=== PATIENT | female | born 1985 | race Caucasian/White ===

== ENCOUNTER → 2022-08-01 13:34 | Outpatient (BNVA) | payer BC, SELFPAY | PROVIDERS: PCP Internal Medicine Hematology & Oncology; Visit Provider Physician Assistant | DX: E66.01 Morbid (severe) obesity due to excess calories (principal) ==

== ENCOUNTER → 2022-08-09 10:00 | Outpatient (BNVA) | payer BC, SELFPAY | PROVIDERS: PCP Internal Medicine Hematology & Oncology; Visit Provider Physician Assistant | DX: E66.01 Morbid (severe) obesity due to excess calories (principal); Z01.818 Encounter for other preprocedural examination; G47.33 Obstructive sleep apnea (adult) (pediatric); E78.5 Hyperlipidemia, unspecified; J45.909 Unspecified asthma, uncomplicated ==

== ENCOUNTER 2022-08-11 07:27 | Outpatient (REF) | payer BC, SELFPAY ==
--- NOTE | ~2022-08-11 | XR_ITS ---
EXAMINATION: XR CHEST 2 VIEWS CLINICAL INFORMATION: Morbid obesity. COMPARISON: None. TECHNIQUE: Frontal and lateral views of the chest were obtained. FINDINGS: The heart, great vessels, pulmonary vasculature and mediastinum are normal. The lungs show no focal infiltrate, effusion or pneumothorax. There is no acute osseous abnormality. XR/XR chest 2V IMPRESSION: No active cardiopulmonary disease.
[2022-08-11 07:45] LABS: MANUAL DIFF FLAG NO
[2022-08-11 08:05] LABS: Basophils Percent Auto 0.6 % (0-2); Eosinophils Absolute Auto 0.2 X10*3/uL (0.0-0.4); Hematocrit 39.9 % (37.0-47.0); Hemoglobin 13.2 g/dl (12.0-16.0); Imm Gran Abs Auto 0.03 X10*3/uL (0.00-0.03); Imm Gran Pct Auto 0.4 % (0.0-0.4); Mean Corpuscular HGB Conc 33.1 g/dl (31.0-35.0); Mean Corpuscular Hemoglobin 29.1 pg (27.0-33.0); Mean Corpuscular Volume 87.9 fL (80.0-98.0); Mean Platelet Volume 11.9 fL (9.4-12.3); Monocytes Absolute Auto 0.5 X10*3/uL (0.1-1.2); Monocytes Percent Auto 6.4 % (2-11); Neutrophils Absolute Auto 4.3 x10*3/uL (2.0-8.3); Neutrophils Percent Auto 60.6 % (45-73); Platelet Count 298 X10*3/uL (160-400); Red Blood Count 4.54 X10*6/uL (4.20-5.50); Red Cell Distribution Width 12.9 % (11.0-16.0)
[2022-08-11 08:51] LABS: Estimated Average Glucose 111 mg/dL; Hemoglobin A1c % 5.5 %
[2022-08-11 09:04] LABS: Alanine Aminotransferase 15 U/L (0-31); Albumin Level 4.3 g/dL (3.5-5.0); Alkaline Phosphatase 64 U/L (39-117); Anion Gap 13 (12-20); Aspartate Amino Transferase 17 U/L (5-31); Bilirubin Total 0.5 mg/dL (0.0-1.0); Blood Urea Nitrogen 17 mg/dL (9-16); C Reactive Protein 1.97 mg/dL (< or = 0.50); Calcium 9.4 mg/dL (8.4-10.2); Carbon Dioxide 24 mmol/L (22-29); Chloride 106 mmol/L (96-108); Cholesterol 195 mg/dL; Estimated Glomerular Filt Rate > 60; Glucose Random 90 mg/dL (60-115); HDL Cholesterol 53 mg/dL; Iron 67 mcg/dL (30-160); LDL Cholesterol Calculated 128 mg/dl; Percent Iron Saturation 27 % (15-50); Potassium 4.2 mmol/L (3.3-5.1); Sodium 139 mmol/L (135-145); Total Iron Binding Capacity 249 mcg/dL (228-428); Total Protein 7.3 g/dL (6.5-8.0); Triglycerides 71 mg/dL; Unsaturated Iron Binding 182 ug/dL
[2022-08-11 09:21] LABS: Ferritin 69 ng/mL (10-122); Insulin 8 uU/mL (2-29); TSH reflex Free T4 3.24 uIU/mL (0.32-4.0); Vitamin D 25-OH Total 27.1 ng/mL (>30)
[2022-08-11 09:36] LABS: Folate 15.9 ng/mL (> or = 4.0); Vitamin B12 668 pg/mL (200-900)
[2022-08-14 16:34] LABS: Zinc 81 mcg/dL (60-130)
[2022-08-14 17:59] LABS: Calcium (PTHI) 9.4 mg/dL (8.6-10.2); PTHI 58 pg/mL (16-77)
[2022-08-16 13:44] LABS: Vitamin A 37 mcg/dL (38-98)
[2022-08-16 16:04] LABS: Vitamin B1 10 nmol/L (8-30)
== END 2022-08-11 07:28 | disposition home or self-care (01) ==
LOC: HO.XRAY 07:27
PROVIDERS: PCP Internal Medicine; Visit Provider Physician Assistant
DX: Z01.818 Encounter for other preprocedural examination (principal); E66.01 Morbid (severe) obesity due to excess calories; E78.5 Hyperlipidemia, unspecified; G47.33 Obstructive sleep apnea (adult) (pediatric); J45.909 Unspecified asthma, uncomplicated
CPT/HCPCS: 36415; 71046; 80053; 80061; 82306; 82607; 82728; 82746; 83036; 83525; 83540; 83970; 84425; 84443; 84590; 84630; 85025; 86140

== ENCOUNTER → 2022-08-13 08:21 | Outpatient (REF) | payer BC, SELFPAY ==
--- NOTE | 2022-08-13 08:58 | ECG_ITS ---
Test Reason : E66.01 Blood Pressure : / mmHG Vent. Rate : 060 BPM Atrial Rate : 060 BPM P-R Int : 140 ms QRS Dur : 082 ms QT Int : 402 ms P-R-T Axes : 041 040 034 degrees QTc Int : 402 ms Normal sinus rhythm Normal ECG No previous ECGs available Referred By: Carmina Salazar Electronically Signed By:Talha Mosqueda
[2022-08-15 14:42] LABS: H Pylori Breath Test Negative (Negative)
== END ==
LOC: HO.CARD 08:21
PROVIDERS: PCP Internal Medicine Hematology & Oncology; Visit Provider Physician Assistant
DX: Z01.818 Encounter for other preprocedural examination (principal); E66.01 Morbid (severe) obesity due to excess calories; E78.5 Hyperlipidemia, unspecified; J45.909 Unspecified asthma, uncomplicated; G47.33 Obstructive sleep apnea (adult) (pediatric)
CPT/HCPCS: 36415; 83013; 93005

== ENCOUNTER → 2022-08-30 08:51 | Outpatient (BNVA) | payer BC, SELFPAY | PROVIDERS: PCP Internal Medicine Hematology & Oncology; Visit Provider Physician Assistant | DX: Z13.89 Encounter for screening for other disorder (principal) ==

== ENCOUNTER → 2022-09-04 12:30 | Outpatient (BNVA) | payer BC, SELFPAY | PROVIDERS: PCP Internal Medicine Hematology & Oncology; Visit Provider Counselor Mental Health | DX: F33.1 Major depressive disorder, recurrent, moderate (principal); E66.01 Morbid (severe) obesity due to excess calories; G47.33 Obstructive sleep apnea (adult) (pediatric) | CPT/HCPCS: 90791 ==

== ENCOUNTER → 2022-09-05 09:26 | Outpatient (BNVA) | payer BC, SELFPAY | PROVIDERS: PCP Internal Medicine Hematology & Oncology; Visit Provider Dietitian, Registered | DX: E66.01 Morbid (severe) obesity due to excess calories (principal) | CPT/HCPCS: 97802 ==

== ENCOUNTER → 2022-09-18 16:10 | Outpatient (BNVA) | payer BC, SELFPAY | PROVIDERS: PCP Internal Medicine Hematology & Oncology; Visit Provider Physician Assistant | DX: Z13.89 Encounter for screening for other disorder (principal) ==

== ENCOUNTER → 2022-09-27 11:40 | Outpatient (BNVA) | payer BC, SELFPAY | PROVIDERS: PCP Internal Medicine; Visit Provider Dietitian, Registered | DX: E66.9 Obesity, unspecified (principal); Z68.42 Body mass index [BMI] 45.0-49.9, adult | CPT/HCPCS: 97803 ==

== ENCOUNTER → 2022-10-12 08:21 | Outpatient (BNVA) | payer BC, SELFPAY | PROVIDERS: PCP Internal Medicine; Referring Provider Internal Medicine; Visit Provider Physician Assistant | DX: Z13.89 Encounter for screening for other disorder (principal) ==

== ENCOUNTER → 2022-10-22 09:43 | Outpatient (BNVA) | payer BC, SELFPAY | PROVIDERS: PCP Internal Medicine; Visit Provider Surgery | DX: Z13.89 Encounter for screening for other disorder (principal) ==

== ENCOUNTER → 2022-11-05 10:26 | Outpatient (BNVA) | payer BC, SELFPAY | PROVIDERS: PCP Internal Medicine; Visit Provider Physician Assistant | DX: Z13.89 Encounter for screening for other disorder (principal) ==

== ENCOUNTER 2022-11-08 09:22 | Outpatient (REF) | payer BC, SELFPAY ==
--- NOTE | ~2022-11-08 | US_ITS ---
EXAMINATION: US COMPLETE ABDOMEN WITH LIVER ELASTOGRAPHY CLINICAL INFORMATION: Obesity COMPARISON: None available. TECHNIQUE: Real-time imaging of the abdominal viscera. Noninvasive ultrasound liver fibrosis assessment is performed using Aydin ElastPQ point quantification shear wave elastography (2D-SWE) with a C5-2 MHz transducer. Multiple elastography samples are obtained. FINDINGS: PANCREAS: Normal. ABDOMINAL AORTA: The proximal, middle, and distal aortic segments are normal in caliber. INFERIOR VENA CAVA: Visualized portions are normal. LIVER: Normal. The liver demonstrates normal size, contour and echogenicity. No focal lesion or intrahepatic biliary duct dilatation. The right lobe measures 14 cm in length. The left lobe measures 10 cm in length. Portal flow is normal/hepatopedal Shear wave liver elastography median stiffness is 1.6 m/s (reference: normal median stiffness is 1.3 m/s or less). IQR/median stiffness to assess sampling precision is 0.14 (reference: good quality data set is IQR/median stiffness of 0.15 or less). GALLBLADDER: Normal. The gallbladder is physiologically distended without evidence of stones, sludge, polyps, wall thickening or pericholecystic fluid. COMMON BILE DUCT: Normal in caliber measuring 0.3 cm in diameter. RIGHT KIDNEY: Normal. No hydronephrosis. No renal calculi or focal parenchymal lesions. The kidney measures 11.4 cm in maximum dimension. LEFT KIDNEY: Normal. No hydronephrosis. No renal calculi or focal parenchymal lesions. The kidney measures 10 point cm in maximum dimension. SPLEEN: Normal. The spleen measures 12 cm in maximum dimension. FREE FLUID: None. US/US abdomen comp w elastography IMPRESSION: 1. Impression: Unremarkable exam 2. Liver elastography: Adequate liver sampling. In the absence of other known clinical signs, rules out compensated advanced chronic liver disease. REFERENCE: Society of Radiologists in Ultrasound Liver Stiffness Thresholds (2020): LIVER STIFFNESS THRESHOLDS: *Liver Stiffness equal or less than 1.3 m/s: High probability of being normal. *Liver Stiffness less than 1.7 m/s: In the absence of other known clinical signs, rules out compensated advanced chronic liver disease. *Liver Stiffness 1.7-2.1 m/s: Suggestive of compensated advanced chronic liver disease but need further test for confirmation. *Liver Stiffness over 2.1 m/s: Rules in compensated advanced chronic liver disease. *Liver Stiffness over 2.4 m/s: Suggestive of clinically significant portal hypertension. QUALITY OF DATA SET: *IQR/Median value equal or less than 0.15 implies a quality data set. *IQR/Median value over 0.15 implies a poor quality data set. SIGNIFICANT CHANGE FROM PRIOR EXAM: Significant change if liver stiffness measurement is 10% or greater from prior exam. OTHER CONSIDERATIONS: The stage of liver fibrosis may be overestimated in the setting of acute hepatitis, liver inflammation, elevated liver function tests, hepatic vascular congestion, obstructive cholestasis, non-fasting state, and infiltrative diseases such as amyloidosis and lymphoma. In some patients with NAFLD, the liver stiffness thresholds for compensated advanced chronic liver disease may be lower. In causes other than viral hepatitis and NAFLD, liver stiffness thresholds are not well established.
--- NOTE | ~2022-11-08 | FL_ITS ---
EXAMINATION: XR FLUOROSCOPY UPPER GI WITH AIR CLINICAL INFORMATION: Morbid obesity COMPARISON: None available. TECHNIQUE: Air-contrast upper GI examination FINDINGS: There is normal apposition of the focal cords while saying E . There is normal elevation of the soft palate while saying candy . Patient swallowed thin and thick barium and half-inch diameter barium tablet without difficulty. No nasopharyngeal reflux or tracheal aspiration. Normal esophageal motility without evidence of persistent stricture. No mucosal abnormalities appreciated within the esophagus. No hiatal hernia. No gastroesophageal reflux including with water siphon test. The stomach demonstrates normal distensibility without evidence of abnormal mass or ulceration. There was no delay in gastric emptying. The duodenal bulb and sweep appeared unremarkable. FLUOROSCOPY TIME: 1.2 minutes. DOSE AREA PRODUCT: 11.715 Gy-cm2 (madden-centimeter squared). FL/FL upper GI w air IMPRESSION: Normal air-contrast upper GI examination.
== END 2022-11-08 09:23 | disposition home or self-care (01) ==
LOC: HO.US 09:22
PROVIDERS: PCP Internal Medicine; Visit Provider Physician Assistant
DX: Z01.818 Encounter for other preprocedural examination (principal); E66.01 Morbid (severe) obesity due to excess calories; E78.5 Hyperlipidemia, unspecified; G47.33 Obstructive sleep apnea (adult) (pediatric); J45.909 Unspecified asthma, uncomplicated
CPT/HCPCS: 74246; 76705; 76981

== ENCOUNTER → 2022-11-16 12:37 | Outpatient (BNVA) | payer BC, SELFPAY | PROVIDERS: PCP Internal Medicine; Visit Provider Surgery ==

== ENCOUNTER → 2022-11-19 14:15 | Outpatient (BNVA) | payer BC, SELFPAY | PROVIDERS: PCP Internal Medicine; Visit Provider Physician Assistant ==

== ENCOUNTER → 2022-11-26 10:28 | Outpatient (BNVA) | payer BC, SELFPAY | PROVIDERS: PCP Internal Medicine; Referring Provider Internal Medicine; Visit Provider Surgery | DX: E66.01 Morbid (severe) obesity due to excess calories (principal); G47.33 Obstructive sleep apnea (adult) (pediatric); E78.5 Hyperlipidemia, unspecified; F41.8 Other specified anxiety disorders ==

== ENCOUNTER 2022-12-05 06:29 | Inpatient (IN) | payer BC, SELFPAY ==
[2022-11-27 12:59] VITALS: BMI 42.8
[2022-11-29 07:02] LABS: MANUAL DIFF FLAG NO
[2022-11-29 07:24] LABS: Basophils Percent Auto 0.4 % (0-2); Eosinophils Absolute Auto 0.2 X10*3/uL (0.0-0.4); Eosinophils Percent Auto 2.5 % (0-4); Hematocrit 37.8 % (37.0-47.0); Hemoglobin 12.5 g/dl (12.0-16.0); Imm Gran Abs Auto 0.02 X10*3/uL (0.00-0.03); Imm Gran Pct Auto 0.3 % (0.0-0.4); Lymphocytes Absolute Auto 2.3 X10*3/uL (1.2-4.9); Lymphocytes Percent Auto 30.9 % (20-40); Mean Corpuscular HGB Conc 33.1 g/dl (31.0-35.0); Mean Corpuscular Hemoglobin 29.2 pg (27.0-33.0); Mean Corpuscular Volume 88.3 fL (80.0-98.0); Mean Platelet Volume 12.7 fL (9.4-12.3); Monocytes Absolute Auto 0.6 X10*3/uL (0.1-1.2); Monocytes Percent Auto 7.5 % (2-11); Neutrophils Absolute Auto 4.3 x10*3/uL (2.0-8.3); Neutrophils Percent Auto 58.4 % (45-73); Platelet Count 218 X10*3/uL (160-400); Red Blood Count 4.28 X10*6/uL (4.20-5.50); White Blood Count 7.3 X10*3/uL (4.8-10.8)
[2022-11-29 07:30] LABS: INTERNATIONAL NORM RATIO 1.2 (0.9-1.1); Prothrombin Time 13.5 SEC (10.0-13.1)
[2022-11-29 07:33] LABS: Estimated Average Glucose 103 mg/dL; Hemoglobin A1c % 5.2 %; Partial Thromboplastin Time 32.2 SEC (26.0-36.4)
[2022-11-29 07:59] LABS: Alanine Aminotransferase 16 U/L (0-31); Albumin Level 4.2 g/dL (3.5-5.0); Alkaline Phosphatase 56 U/L (39-117); Anion Gap 12 (12-20); Aspartate Amino Transferase 18 U/L (5-31); Bilirubin Total 0.8 mg/dL (0.0-1.0); Blood Urea Nitrogen 16 mg/dL (9-16); C Reactive Protein 1.49 mg/dL (< or = 0.50); Calcium 9.3 mg/dL (8.4-10.2); Carbon Dioxide 24 mmol/L (22-29); Chloride 107 mmol/L (96-108); Cholesterol 174 mg/dL; Creatinine Clr Calc Pharmacy 117.6; Estimated Glomerular Filt Rate > 60; Glucose Random 87 mg/dL (60-115); HDL Cholesterol 39 mg/dL; Iron 80 mcg/dL (30-160); LDL Cholesterol Calculated 122 mg/dl; Percent Iron Saturation 34 % (15-50); Potassium 3.8 mmol/L (3.3-5.1); Sodium 139 mmol/L (135-145); Total Iron Binding Capacity 237 mcg/dL (228-428); Total Protein 7.2 g/dL (6.5-8.0); Triglycerides 68 mg/dL; Unsaturated Iron Binding 157 ug/dL
[2022-11-29 08:22] LABS: Ferritin 93 ng/mL (10-122); TSH reflex Free T4 3.28 uIU/mL (0.32-4.0); Vitamin B12 946 pg/mL (200-900); Vitamin D 25-OH Total 49.6 ng/mL (>30)
--- NOTE | 2022-12-03 15:06 | HO.ANESPROP2 ---
Documented by User: Barbara Mejia NP 12/03/22 15:06 HPI - Anesthesia Eval Consult details Narrative: 37yo F for Gastrectomy Sleeve,Egd,poss diaphragmatic Hernia,poss ventral hernia, poss open PMFSH Active Problems Active Problems: All Active Problems (Updated 11/27/22 @ 12:57 by Yanelis Hunt RN) Morbid obesity (Acute) Obstructive sleep apnea (Acute) Hyperlipidemia (Acute) Depression with anxiety (Acute) Asthma (Acute) Insomnia (Acute) Pre-op evaluation (Acute) Major depressive disorder, recurrent, moderate (Acute) Past Medical History Medical History Arthritis Asthma Depression with anxiety Heart murmur Hyperlipidemia Insomnia Sleep apnea Family History Family History Mother Hypertension High cholesterol Cancer Amyotrophic lateral sclerosis (ALS) Father High cholesterol Hypertension Diabetes Liver cirrhosis Brother Diabetes High cholesterol Hypertension Surgical History Surgical History (Updated 12/05/22 @ 10:13 by Radha Larios MD) Hx of colonoscopy Hx of laparoscopy [place] teeth extracted Social History Social History 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 If so, by whom?: No Are you DNR?: No Advance Directives: No Advance Directives Information Provided: No Advance Directives on File: No Recently lost weight without trying: No Eating poorly because of decreased appetite: No Nutrition Risks: No Nutritional Risk Patient : No FDLMP: N/A-has IUD : No Poor oral hygiene: No (dental crowns upper front 6 teeth) Meds Allergies Allergy/AdvReac Type Severity Reaction Status Date / Time almond Allergy Mild Hives Verified 11/26/22 10:33 azithromycin Allergy Mild Swelling Verified 11/26/22 10:33 coconut Allergy Mild Hives Verified 11/26/22 10:33 Penicillins Allergy Mild Hives Verified 11/26/22 10:33 shellfish derived Allergy Mild Hives Verified 11/26/22 10:33 fentanyl AdvReac Unknown adverse Verified 11/27/22 12:56 reaction to med post laparoscopy as teenager Home Medications Medication Instructions Recorded Confirmed Last Taken Type SAHIL multivitamin 1 tab PO DAILY 08/01/22 11/27/22 Unknown History albuterol sulfate 90 mcg/actuation 2 puff inhalation Q6H PRN 08/01/22 11/27/22 12/05/22 History aerosol inhaler Shortness Of Breath 2 puff cetirizine 10 mg capsule (Zyrtec) 10 mg PO DAILY PRN Allergy Symptoms 08/01/22 11/27/22 12/04/22 00:00 History 10 mg fluticasone 100 mcg-salmeterol 50 1 inh inhalation BID 08/01/22 11/27/22 12/04/22 00:00 History mcg/dose blistr powdr for 1 inh inhalation (Advair Diskus) fluticasone propionate 50 1 spray intranasal BID 08/01/22 11/27/22 12/04/22 00:00 History mcg/actuation nasal 1 spray spray,suspension (Flonase Allergy Relief) hydroxyzine HCl 25 mg tablet 25 mg PO BEDTIME PRN Anxiety 08/01/22 11/27/22 Unknown History levonorgestrel 21 mcg/24 hours (8 1 device intrauterine ONCE 08/01/22 11/27/22 Unknown History yrs) 52 mg intrauterine device (Mirena) melatonin 5 mg capsule 5 mg PO BEDTIME PRN Insomnia 08/01/22 12/05/22 Unknown History sertraline 25 mg tablet 75 mg PO BEDTIME 08/01/22 11/27/22 12/04/22 00:00 History 75 mg Exam Exam Date and Time: December 03, 2022 1506 Height,Weight and Vital Signs: Height 5 ft Weight 99.337 kg Pertinent Lab Results Pertinent Lab Results: Laboratory Tests 11/29/22 11/29/22 11/29/22 06:58 06:58 06:58 WBC 7.3 RBC 4.28 Hgb 12.5 Hct 37.8 MCV 88.3 MCH 29.2 MCHC 33.1 RDW 13.0 Plt Count 218 D MPV 12.7 H Immature Gran % (Auto) 0.3 Neut % (Auto) 58.4 Lymph % (Auto) 30.9 Delta % (Auto) 7.5 Eos % (Auto) 2.5 Baso % (Auto) 0.4 Lymph # (Auto) 2.3 Delta # (Auto) 0.6 Eos # (Auto) 0.2 Baso # (Auto) 0.0 Abs Immat Gran (auto) 0.02 Absolute Neuts (auto) 4.3 Absolute Nucleated RBC 0.000 Nucleated RBC % (auto) 0.0 PT 13.5 H INR 1.2 H APTT 32.2 Sodium 139 Potassium 3.8 Chloride 107 Carbon Dioxide 24 Anion Gap 12 BUN 16 Creatinine 0.70 Estim Creat Clear Calc 117.6 Estimated GFR > 60 Random Glucose 87 Estimat Average Glucose Hemoglobin A1c % Calcium 9.3 Iron 80 TIBC 237 % Saturation 34 Unsat Iron Binding 157 Ferritin 93 Total Bilirubin 0.8 AST 18 ALT 16 Alkaline Phosphatase 56 C-Reactive Protein 1.49 H Total Protein 7.2 Albumin 4.2 Triglycerides 68 Cholesterol 174 LDL Cholesterol, Calc 122 HDL Cholesterol 39 Vitamin B12 946 H 25-OH Vitamin D Total 49.6 TSH 3.28 Blood Type Antibody Screen 11/29/22 11/29/22 06:58 06:58 WBC RBC Hgb Hct MCV MCH MCHC RDW Plt Count MPV Immature Gran % (Auto) Neut % (Auto) Lymph % (Auto) Delta % (Auto) Eos % (Auto) Baso % (Auto) Lymph # (Auto) Delta # (Auto) Eos # (Auto) Baso # (Auto) Abs Immat Gran (auto) Absolute Neuts (auto) Absolute Nucleated RBC Nucleated RBC % (auto) PT INR APTT Sodium Potassium Chloride Carbon Dioxide Anion Gap BUN Creatinine Estim Creat Clear Calc Estimated GFR Random Glucose Estimat Average Glucose 103 Hemoglobin A1c % 5.2 Calcium Iron TIBC % Saturation Unsat Iron Binding Ferritin Total Bilirubin AST ALT Alkaline Phosphatase C-Reactive Protein Total Protein Albumin Triglycerides Cholesterol LDL Cholesterol, Calc HDL Cholesterol Vitamin B12 25-OH Vitamin D Total TSH Blood Type B Positive Antibody Screen NEGATIVE Narrative Narrative: EKG 07/2022 Vent. Rate : 060 BPM ? ? Atrial Rate : 060 BPM ?? P-R Int : 140 ms? QRS Dur : 082 ms ? ? QT Int : 402 ms ? ? ? P-R-T Axes : 041 040 034 degrees ?? QTc Int : 402 ms ? Normal sinus rhythm Normal ECG No previous ECGs available Assessment and Plan Assessment Anesthesia Assessment: Chart Reviewed Documented by User: Radha Larios MD 12/05/22 10:16 [facility] Active Problems Active Problems: All Active Problems (Updated 11/27/22 @ 12:57 by Yanelis Hunt RN) Morbid obesity (Acute) BMI 42.8 Obstructive sleep apnea (Acute)- mild. No CPAP recommended for now. Trying weight loss Hyperlipidemia (Acute) Depression with anxiety (Acute) Asthma (Acute). Stable . Uses inhalers b.i.d. Insomnia (Acute) Pre-op evaluation (Acute) Major depressive disorder, recurrent, moderate (Acute) Past Medical History Medical History Arthritis Asthma Depression with anxiety Heart murmur Hyperlipidemia Insomnia Sleep apnea Family History Family History Mother Hypertension High cholesterol Cancer Amyotrophic lateral sclerosis (ALS) Father High cholesterol Hypertension Diabetes Liver cirrhosis Brother Diabetes High cholesterol Hypertension Family history of problems with anesthesia: No Surgical History Surgical History (Updated 12/05/22 @ 10:13 by Radha Larios MD) Hx of colonoscopy Hx of laparoscopy [place] teeth extracted History of Problems with Anesthesia: No Social History Social History 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 If so, by whom?: No Are you DNR?: No Advance Directives: No Advance Directives Information Provided: No Advance Directives on File: No Recently lost weight without trying: No Eating poorly because of decreased appetite: No Nutrition Risks: No Nutritional Risk Patient : No FDLMP: N/A-has IUD : No Poor oral hygiene: No (dental crowns upper front 6 teeth) Meds Allergies Allergy/AdvReac Type Severity Reaction Status Date / Time almond Allergy Mild Hives Verified 11/26/22 10:33 azithromycin Allergy Mild Swelling Verified 11/26/22 10:33 coconut Allergy Mild Hives Verified 11/26/22 10:33 Penicillins Allergy Mild Hives Verified 11/26/22 10:33 shellfish derived Allergy Mild Hives Verified 11/26/22 10:33 fentanyl AdvReac Unknown adverse Verified 11/27/22 12:56 reaction to med post laparoscopy as teenager Home Medications Medication Instructions Recorded Confirmed Last Taken Type SAHIL multivitamin 1 tab PO DAILY 08/01/22 11/27/22 Unknown History albuterol sulfate 90 mcg/actuation 2 puff inhalation Q6H PRN 08/01/22 11/27/22 12/05/22 History aerosol inhaler Shortness Of Breath 2 puff cetirizine 10 mg capsule (Zyrtec) 10 mg PO DAILY PRN Allergy Symptoms 08/01/22 11/27/22 12/04/22 00:00 History 10 mg fluticasone 100 mcg-salmeterol 50 1 inh inhalation BID 08/01/22 11/27/22 12/04/22 00:00 History mcg/dose blistr powdr for 1 inh inhalation (Advair Diskus) fluticasone propionate 50 1 spray intranasal BID 08/01/22 11/27/22 12/04/22 00:00 History mcg/actuation nasal 1 spray spray,suspension (Flonase Allergy Relief) hydroxyzine HCl 25 mg tablet 25 mg PO BEDTIME PRN Anxiety 08/01/22 11/27/22 Unknown History levonorgestrel 21 mcg/24 hours (8 1 device intrauterine ONCE 08/01/22 11/27/22 Unknown History yrs) 52 mg intrauterine device (Mirena) melatonin 5 mg capsule 5 mg PO BEDTIME PRN Insomnia 08/01/22 12/05/22 Unknown History sertraline 25 mg tablet 75 mg PO BEDTIME 08/01/22 11/27/22 12/04/22 00:00 History 75 mg Exam Height,Weight and Vital Signs: Height 5 ft Weight 99.337 kg Vital Signs Temp Pulse Resp BP Pulse Ox O2 Del Method 12/05/22 06:19 97.6 F 72 16 103/48 L 98 Room Air Pertinent Lab Results Pertinent Lab Results: Laboratory Tests 11/29/22 11/29/22 11/29/22 06:58 06:58 06:58 WBC 7.3 RBC 4.28 Hgb 12.5 Hct 37.8 MCV 88.3 MCH 29.2 MCHC 33.1 RDW 13.0 Plt Count 218 D MPV 12.7 H Immature Gran % (Auto) 0.3 Neut % (Auto) 58.4 Lymph % (Auto) 30.9 Delta % (Auto) 7.5 Eos % (Auto) 2.5 Baso % (Auto) 0.4 Lymph # (Auto) 2.3 Delta # (Auto) 0.6 Eos # (Auto) 0.2 Baso # (Auto) 0.0 Abs Immat Gran (auto) 0.02 Absolute Neuts (auto) 4.3 Absolute Nucleated RBC 0.000 Nucleated RBC % (auto) 0.0 PT 13.5 H INR 1.2 H APTT 32.2 Sodium 139 Potassium 3.8 Chloride 107 Carbon Dioxide 24 Anion Gap 12 BUN 16 Creatinine 0.70 Estim Creat Clear Calc 117.6 Estimated GFR > 60 Random Glucose 87 Estimat Average Glucose Hemoglobin A1c % Calcium 9.3 Iron 80 TIBC 237 % Saturation 34 Unsat Iron Binding 157 Ferritin 93 Total Bilirubin 0.8 AST 18 ALT 16 Alkaline Phosphatase 56 C-Reactive Protein 1.49 H Total Protein 7.2 Albumin 4.2 Triglycerides 68 Cholesterol 174 LDL Cholesterol, Calc 122 HDL Cholesterol 39 Vitamin B12 946 H 25-OH Vitamin D Total 49.6 TSH 3.28 Blood Type Antibody Screen 11/29/22 11/29/22 06:58 06:58 WBC RBC Hgb Hct MCV MCH MCHC RDW Plt Count MPV Immature Gran % (Auto) Neut % (Auto) Lymph % (Auto) Delta % (Auto) Eos % (Auto) Baso % (Auto) Lymph # (Auto) Delta # (Auto) Eos # (Auto) Baso # (Auto) Abs Immat Gran (auto) Absolute Neuts (auto) Absolute Nucleated RBC Nucleated RBC % (auto) PT INR APTT Sodium Potassium Chloride Carbon Dioxide Anion Gap BUN Creatinine Estim Creat Clear Calc Estimated GFR Random Glucose Estimat Average Glucose 103 Hemoglobin A1c % 5.2 Calcium Iron TIBC % Saturation Unsat Iron Binding Ferritin Total Bilirubin AST ALT Alkaline Phosphatase C-Reactive Protein Total Protein Albumin Triglycerides Cholesterol LDL Cholesterol, Calc HDL Cholesterol Vitamin B12 25-OH Vitamin D Total TSH Blood Type B Positive Antibody Screen NEGATIVE Laboratory Results - last 24 hr 11/29/22 12/04/22 12/05/22 Unknown 12:50 06:12 Urine Test NEGATIVE Zinc 80 COVID-19 ([facility]) Negative COVID-19 Clin Com See Note Airway Mallampati Class: II TM Dist: >3cm Neck ROM: Full Loose/Missing/Broken Teeth: Yes (Top 6 front teeth capped. Missing molars. Denies broken or loose teeth) Heart: RRR. No murmur appreciated Lungs: CTAB. No wheezes Assessment and Plan Assessment Anesthesia Assessment: Anesthesia Plan Discussed Final Anesthetic Review Family History of Problems with Anesthesia: No History of Problems with Anesthesia: No NPO: Yes ASA Class: III Final Preanesthetic Review: No Changes in Pt Med Stat, Meds/Allgs Chart Reviewed, Consent Obtained/Reviewed and Anes Risks/Benef Reviewed Patient Risk: Intermediate Procedure Risk: Intermediate Assessment/Block/Sedation in SS: Assess/Block/Sedation- Anesthetic Plan Anesthetic Plan: GA Disposition: Standard PACU and Inp. Admit - Standard Bed
[2022-12-03 15:54] LABS: Calcium (PTHI) 9.3 mg/dL (8.6-10.2); PTHI 48 pg/mL (16-77)
[2022-12-04 13:11] LABS: COVID-19 Test Negative (Negative); IDNOW Serial# 08D9AD1C
[2022-12-05] VITALS (11 sets, daily range): BP systolic 103–140; BP diastolic 48–83; PULSE 62–89; RESP 14–21; TEMP 36.4–36.9; O2SAT 95–100; BMI 42.8; BMI 48.3
[2022-12-05 03:33] LABS: Zinc 80 mcg/dL (60-130)
[2022-12-05 06:22] LABS: UPreg QC Valid YES; Urine Pregnancy NEGATIVE (NEGATIVE)
--- NOTE | 2022-12-05 06:48 | MHC.SHP ---
Pre-Procedural Eval Section A Date of Service: 12/05/22 The patient is an INPATIENT: Yes The History & Physical has been completed within 30 days and I have reviewed it.: Yes Section B Chief Complaint: Morbid (severe) obesity due to excess calories Allergies: Allergies Allergy/AdvReac Type Severity Reaction Status Date / Time almond Allergy Mild Hives Verified 11/26/22 10:33 azithromycin Allergy Mild Swelling Verified 11/26/22 10:33 coconut Allergy Mild Hives Verified 11/26/22 10:33 Penicillins Allergy Mild Hives Verified 11/26/22 10:33 shellfish derived Allergy Mild Hives Verified 11/26/22 10:33 fentanyl AdvReac Unknown adverse Verified 11/27/22 12:56 reaction to med post laparoscopy as teenager Plan I have reviewed the history and physical and performed a pertinent physical examination on my patient. No changes have occurred unless specified. Time Spent With Patient Time: Total time managing care of this patient today ____ minutes.
--- NOTE | 2022-12-05 06:51 | W.PM.OPN ---
Operative Note Operative Note Date of Service: 12/05/22 Narrative: Preop diagnosis: [Morbid obesity, obstructive sleep apnea, hyperlipidemia, insomnia, depression] Postop diagnosis: [Same, thick liver/enlarged, grossly normal stomach and spleen; no evidence of hiatal hernia] Procedure: [Laparoscopic sleeve gastrectomy, gastropexy and intraoperative upper endoscopy] Surgeon: Darius Kapoor MD Assist: [Brandy Gonzalez PA-C] Anesthesia: [GET, Marcaine, 0.5% with epi] Estimated blood loss: [10cc] Specimen: [Portion of stomach with fundus] Intraoperative findings: [The liver was slightly enlarged in AP/thickness; grossly, the stomach and spleen appeared normal and no hiatal hernia was present] Indications: [The patient is a 37-year-old woman with a lifelong struggle with obesity in the comorbidities of obstructive sleep apnea, hyperlipidemia, insomnia and depression who entered the surgical weight loss program 08/01/2022 with a BMI of 50.1 and a weight of 256.1 lb. After obtaining Education to help her with medical and surgical weight loss, the patient demonstrated understanding of these concepts with successful preoperative weight loss. The options of continued medical weight loss versus bariatric surgery was reviewed with the patient. She wanted to proceed with a laparoscopic sleeve gastrectomy, possible hiatal hernia repair, intraoperative upper endoscopy and possible ventral hernia repair with the inherent risks of which include, but are not limited to: Bleeding that could require another operation or blood transfusion; the inherent risks of transfusion reaction infectious disease from blood transfusions; the risk of staple line leaks that could cause sepsis, multi-system organ failure and ; the risk of mesenteric or deep vein thrombosis of the lower extremities that could cause a fatal pulmonary embolism was reviewed; the risk of GERD that could require conversion to gastric bypass was discussed; the risk of recurrent hiatal hernia, especially in the setting of weight regain was reviewed. The risk of weight regain if maladaptive eating and sedentary behavior continue was discussed. The importance of proper diet and increased activity to augment surgical weight loss and the fact that no operation would result in weight loss of poor dietary decisions and sedentary behavior are resumed were discussed at length and apparently understood. The patient had the option of having a sales representative girls' apparel present and declined this option.] Procedure: [The patient was identified in preoperative holding and again an operating room 6. The patient was identified in the preoperative holding area by myself and again in the operating suite by myself and the OR team. Patient was placed supine on the operating table. Safety straps were utilized and a footboard utilized. The patient was induced in general endotracheal anesthesia administered with excellent effect. An appropriate time-out was performed. The patient's abdomen was then widely prepped and draped in the usual manner for surgery using chlorprep. Antibiotics per protocol were administered by Anesthesia. After infiltrating preemptive local in the skin and subcutaneous tissues in the left upper quadrant, a stab incision was made sharply in the left subcostal abdomen and the Veress needle inserted without incident. An appropriate drop test was performed then a pneumoperitoneum of 15 mmHg was obtained using carbon dioxide. Opening pressures were 7 mmHg. Next, a 5 mm 0 degree scope over a 5 mm Optiview trocar was used to access the abdomen via the epigastric incision in the midline. Once the abdomen was entered, the the trocar obturator was removed and the laparoscope was used to confirm there was no injury from the Veress needle nor trocar insertion injury to the bowel or mesentery, then the scope was switched to a 5 mm 45 degree laparoscope. Next, using preemptive local, additional 5 mm trocars were placed under direct laparoscopic vision on the patient's left abdomen, then right and the 5 mm midline trocar upsized to a 12 mm to accommodate the stapler. The patient was then positioned in reverse Trendelenburg and the liver retractor deployed through the right lateral 5 mm trocar and secured. There was no evidence of a hiatal hernia. A 40 Chinese ViSiGi bougie was inserted by Anesthesia per os and advanced to the stomach to decompress. It was then withdrawn to the GE junction all under direct laparoscopic vision. Dissection was begun along the greater curvature using the 5 mm [place] LigaSure for hemostasis and continued to the left nadine of the diaphragm. Dissection was then carried towards the pylorus to 3-4 cm from the pylorus and retro gastric adhesions lysed. The gastroesophageal fat pad was carefully mobilized taking care to avoid injury to the esophagus and stomach and dissection carried towards the short gastrics taking care to avoid injury to the spleen and splenic artery. The diaphragmatic hiatus was carefully examined for a hernia, and no apparent hernia was appreciated. Next, the 40 Fr ViSiGi bougie was advanced by anesthesia under direct vision and laparoscopic guidance and positioned in the antrum approximately 3 cm from the pylorus using laparoscopic graspers to serve as a guide for a stapled sleeve gastrectomy. Stapling was performed with [employer] stapler with a purple 45 and then orange 45 and 60 loads. The bougie served as a guide to maintain the same sleeve caliber to avoid stricture & sleeve distortion. The 10 mm clip intelligence senior sergeant was used to apply additional clips to the staple line. Care was taken to be sure that the sleeve laid flat and was without stricture. Once the sleeve was complete, the portion of stomach was placed in the lower abdomen to be sent for removal and permanent section. The staple line, gastrocolic omentum, spleen and short gastric areas were all inspected for hemostasis which was found to be good. Next, the bougie was withdrawn under laparoscopic vision used to suction the esophagus and hypopharynx and then discarded. After inspecting again for hemostasis, a gastropexy was performed using 2-0 Polysorb suture to secure the sleeve gastrectomy to the gastrocolic omentum. Next, I broke scrub perform an on-table upper endoscopy to assess the sleeve and the esophagus and stomach. The patient was returned to neutral position and the Olympus 180 gastroscope was advanced taking care to preserve the endotracheal tube. The esophagus was intubated without incident. Minimal air was insufflated and the scope advanced into the newly formed sleeve. The staple line was inspected for hemostasis and the morphology of the sleeve appeared straight with a uniform diameter. Intraoperatively, there was no evidence of staple line leak seen during laparoscopy as air was insufflated via endoscope. The scope was then used to aspirate the air from the sleeve withdrawn and removed. I then rescrubbed to return to the operative field and again inspected the field for hemostasis. After final assessment for hemostasis, the patient was returned to neutral position, a Karlee used to withdraw the resected gastric specimen which was sent for permanent section. The fascia of the 12 mm midline was closed using an 0 Polysorb figure of 8 on a suture passer under direct laparoscopic vision. The abdomen was then deflated and all trocars removed. The suture was then tied and the skin closed with 4-0 Monocryl subcuticular sutures. The abdomen was then washed and dried, benzoin and Steri-Strips applied followed by Tegaderms. The patient tolerated the procedure well was then extubated the recover in stable condition. All sponge needle and instrument counts were correct x2. At the patient's request, I verbally spoke with her father Braulio and her brother Braulio bach in the OR counseling lounge. Their questions seemed to be satisfactorily answered.]
[2022-12-05] MEDS: Lactated Ringers 1,000 ML 100 ML IVCONT ×3 (06:56→21:24)
--- NOTE | 2022-12-05 07:07 | PHA.MEDREC ---
Pharmacy Consult ? Medication Reconciliation Pharmacy has completed the medication reconciliation. Reviewed med rec done by nursing
--- NOTE | 2022-12-05 10:18 | PM.DS ---
DS: Providers Provider Date of Service: 12/06/22 Date of admission: 12/05/22 06:29 Primary care physician: Bassam Wright MD DS: Summary Hospital Course Hospital Course: ADMITTING DIAGNOSIS: morbid obesity,?LEONEL, HLD, depression, anxiety, asthma DISCHARGE DIAGNOSIS: same, s/p laparoscopic sleeve gastrectomy and gastropexy PAST SURGICAL HISTORY:?laparoscopy, colonoscopy PROCEDURE: upper endoscopy, laparoscopic sleeve gastrectomy and gastropexy DISCHARGE SUMMARY: History of Present Illness: The patient is a?37 year-old woman with a BMI of?42.8 kg/m2 and associated co-morbidities as described above. The patient had extensive work-up, lost?47.6 lbs preoperatively and was electively scheduled for laparoscopic, possible open sleeve gastrectomy and gastropexy. Risks and complications of the surgery were discussed with the patient in advance, particularly the possibility of , pulmonary embolism, anastomotic leak, bleeding, bowel injury, GERD, cardiac, renal or pulmonary complications. The patient understood all the risks and was in agreement with the surgical plan. Hospital Course: The patient underwent an uneventful laparoscopic sleeve gastrectomy with gastropexy on the day of admission. Postoperatively, the patient was transferred to the surgical floor. The patient received IV Acetaminophen and IV dilaudid for pain control. Patient was started on bariatric phase 1 diet POD #0. On postoperative day one, the patient was feeling well without nausea, vomiting, fevers, or tachycardia. The patient had some mild incisional pain and the abdomen was soft.? On the morning of postoperative day one, the patient was continued on 1 ounce of water or ice every half hour. During the day, the patient did fairly well, having some incisional pain, but able to ambulate adequately and to tolerate liquids well. Since the patient is doing well, we decided that the patient was ready to be discharged. The patient was given instructions to follow-up with me next week and to call my office for any fever over 101, persistent abdominal pain, nausea, vomiting, GERD, symptoms of DVT such as calf tenderness, or leg swelling, or pulmonary embolism such as chest pain or shortness of breath.? The patient was also instructed to drink 40-60 ounces of liquids per day using the 1-ounce cups. The patient had been given prescriptions for Tylenol for pain, Zofran prn for nausea, and pantoprazole and carafate previously. The patient was encouraged to ambulate and use the incentive spirometer. The patient was allowed to shower, but no baths, and encouraged to stay active at home. All of these instructions were given to the patient personally. All questions were answered and the patient understood all instructions, the instructions were also given to the patient in print. Time Spent with Patient Time attestation: Total time managing care of this patient today ____ minutes. Discharge coordination time: Less than 30 minutes Quality: Safe Use of Opioids Does Pt have an Active Cancer Diagnosis on the Problem List?: No Quality: Stroke Does the patient have a stroke diagnosis?: No Physical Exam Vital Signs: Vital Signs: Last Vital Signs Temp 98.4 F 12/05/22 10:08 Pulse 85 12/05/22 10:13 Resp 16 12/05/22 10:13 BP 129/69 12/05/22 10:13 Pulse Ox 100 12/05/22 10:13 O2 Del Method Simple Mask 12/05/22 10:13 O2 Flow Rate 4 12/05/22 10:13 BMI result Body Mass Index 42.8 DS: Data Data Completed and Pending Pending studies at discharge: Pending at discharge 12/05/22 09:43 Surgical [PTH] Routine Labs on day of discharge: Laboratory Results - last 24 hr 11/29/22 12/04/22 12/05/22 Unknown 12:50 06:12 Urine Test NEGATIVE Zinc 80 COVID-19 ([facility]) Negative COVID-19 Clin Com See Note Discharge Plan Discharge Anticipated Discharge Date/Time: 12/06/22 10:00 Patient Disposition: Home, Self-Care Discharge Diagnosis: morbid obesity s/p laparoscopic sleeve gastrectomy and gastropexy Referrals: Bassam Wright MD [Primary Care Provider] - 1 Week Discharge Medications: Continued Mirena 20 mcg/24 hours (8 yrs) 52 mg intrauterine device 1 device intrauterine ONCE fluticasone propionate [Flonase Allergy Relief] 50 mcg/actuation spray,suspension 1 spray intranasal BID Rx Instructions: administer into each nostril sertraline 25 mg tablet 75 mg PO BEDTIME fluticasone propion-salmeterol [Advair Diskus] 100-50 mcg/dose blister with device 1 inh inhalation BID Zyrtec 10 mg capsule 10 mg PO DAILY PRN (Reason: Allergy Symptoms) melatonin 5 mg capsule 5 mg PO BEDTIME PRN (Reason: Insomnia) albuterol sulfate 90 mcg/actuation HFA aerosol inhaler 2 puff inhalation Q6H PRN (Reason: Shortness Of Breath) hydroxyzine HCl 25 mg tablet 25 mg PO BEDTIME PRN (Reason: Anxiety) ondansetron HCl 4 mg tablet 4 mg PO Q6H PRN (Reason: nausea and vomiting) Qty: 20 0RF pantoprazole 40 mg tablet,delayed release (DR/EC) 40 mg PO QAM 30 Days Qty: 30 2RF sucralfate 100 mg/mL suspension 10 ml PO BID 30 Days Qty: 600 2RF acetaminophen 500 mg/15 mL liquid 500 mg PO Q6H PRN (Reason: fever or pain) Qty: 237 2RF Discontinued cholecalciferol (vitamin D3) 25 mcg (1,000 unit) capsule 25 mcg PO DAILY Qty: 30 5RF SAHIL multivitamin 1 tab PO DAILY polyethylene glycol 3350 [Miralax] 17 gram powder in packet See Rx Instructions PO DAILY Qty: 14 0RF Rx Instructions: Take 7 packets 2 days before surgery and 7 packets 1 day before surgery. Mix each packet with 8 oz's of water before surgery. Discharge Orders: Discharge Order (Routine); Ordered 12/06/22 Ordered By: Brandy Gonzalez Activity on Discharge: No heavy lifting Stand Alone Forms: Patient Portal Discharge page Care Plan Goals: weight loss Health Concerns: morbid obesity Plan of Treatment: No tub baths, sex or returning to work until discussed at first post op appointment. No alcohol, tobacco or illegal drug use. Continue to use incentive spirometer hourly while awake. Walk in home for 5- 10 minutes every 2 hours during the first week. Wear abdominal binder with activity. Follow all meal plan instructions from your bariatric surgeon. Review bariatric handbook and call with any questions. Discharge Instructions 1. Please call your doctor or come back to the emergency room should any new symptoms arise. 2. Activity: abstain from alcohol,? limited stair climbing, no bending, no driving, no exercise, no illicit substances, no lifting, no sex, no tub bath, no work. 4. Diet: follow your bariatric surgeons recommendations for advancing diet. 5. Dressing Change/Wound Care: Your incisions are covered with waterproof dressings. You can shower with these and pat dry. Do not rub over dressings or incisions. If the area is tender, you may apply an ice pack for short intervals (no more than 20 minutes on, followed by at least 20 minutes off). Do not apply heat. Do not use creams, lotions, or topical antibiotics unless instructed to do so by your surgeon. 6. Call your doctor if: - Your temperature exceeds 101.5 F - You experience excessive pain or swelling - You have an unexpected reaction to medication - You have excessive bleeding - You experience continued vomiting/nausea - Your incision begins to separate - Your incision shows signs of infection such as increased redness, swelling, excessive pain, heat, or drainage (light blood or clear fluid is normal) General instructions: No lifting greater than 10 lbs for the next 6 weeks[address] driving within 24 hours of taking narcotic pain medications. If you do not move your bowels in the next 2 days, please take milk of magnesia over the counter. Please follow the post op diet and do not advance your diet until you are seen in the office in about 2 weeks. Please walk around your home every hour or two to prevent blood clots from forming in your legs. You do not need to wake from sleeping to walk. Please sleep in a bed or couch to prevent kinking at the hips and knees. Please take your incentive spirometer (your lung network control technician) home with you and use it for the next few days to prevent pneumonias. You may shower, no hot tubs, baths or swimming pools. Please call the office with any questions or concerns such as increasing abdominal pain, fever, chills, shortness of breath, chest pain, leg pain or swelling, or redness or drainage from your incisions. Please make sure you are consuming 40-60 ounces of total fluids per day. Avoid all carbonation. Do not hesitate to contact the office with any questions at . The patient's medical history has been reviewed and they are considered low risk for post op DVT and therefore DVT prophylaxis is not considered necessary. Travel after surgery was reviewed. The patient has not disclosed any travel plans during the first 30 days after surgery and they have been advised that within the first 30 days after surgery any bus, plane, train or car travel over 2 hours in duration is contraindicated due to the possibility of developing blood clots from immobility. Any travel, needs to include periods of ambulation of 10 minutes in duration every 2 hours.? The patient was instructed to discuss any plans for travel during this period with their bariatric surgeon. Assessment: s/p laparoscopic sleeve gastrectomy and gastropexy
[2022-12-05 10:39] LABS: Hematocrit 36.2 % (37.0-47.0); Hemoglobin 11.9 g/dl (12.0-16.0)
[2022-12-05 11:01] LABS: Anion Gap 14 (12-20); Blood Urea Nitrogen 14 mg/dL (9-16); Calcium 8.8 mg/dL (8.4-10.2); Carbon Dioxide 20 mmol/L (22-29); Chloride 108 mmol/L (96-108); Estimated Glomerular Filt Rate > 60; Glucose Random 180 mg/dL (60-115); Potassium 4.2 mmol/L (3.3-5.1); Sodium 138 mmol/L (135-145)
[2022-12-05] MEDS: ondansetron HCL 4 MG/2 ML VIAL IVPUSH ×2 (12:22→21:22)
--- NOTE | 2022-12-05 12:31 | PC.NURSE ---
Pt received from PACU to room 380. Pt A&OX4 ONEIL well compression stockings on BLE instructed on post op diet and use of incentive spirometer , denies pain at this time routine post op care
--- NOTE | 2022-12-05 13:38 | P.PNGS_ITS ---
Subjective Subjective Date of Service: 12/05/22 Patient reports: no new complaints, feels better and tolerating liquids well Interval history: The patient is seen postoperatively on . She is sitting out of bed, has been up walking, reports tolerable discomfort, no pain and no significant nausea or vomiting. She is currently tolerating sips of water and denies any chest pain, difficulty breathing or shortness of breath. Physical Exam Vital Signs: Vital Signs: Last Vital Signs Temp 98 F 12/05/22 11:20 Pulse 69 12/05/22 11:20 Resp 15 12/05/22 11:20 BP 133/80 12/05/22 11:20 Pulse Ox 98 12/05/22 11:20 O2 Del Method Nasal Cannula 12/05/22 11:20 O2 Flow Rate 2 12/05/22 11:20 BMI result Body Mass Index 48.3 On exam she is nontoxic and in good spirits She is in no acute respiratory distress Abdominal binder is in place. Objective Data Active Medications Albuterol Sulfate (Albuterol Sulfate 90 Mcg 8 Gm Inhaler) 2 puff INHALE Q6H PRN PRN Reason: Shortness Of Breath Famotidine (Famotidine/Pf 20 Mg/2 Ml Vial) 20 mg IVPUSH BID JONAS Fentanyl (Fentanyl Citrate/Pf 100 Mcg/2 Ml Vial) 25 mcg IVPUSH Q5M PRN; Protocol PRN Reason: Pain, Moderate(Pain Scale 4-6) Fluticasone/Vilanterol (Fluticasone/Vilanterol 100/25 Blst.W.Dev) 1 puff INHALE RDAILY JONAS Hydromorphone HCl (Hydromorphone Hcl 0.5 Mg/0.5 Ml Syringe) 0.25 mg IVPUSH Q5M PRN; Protocol PRN Reason: Pain, Severe (Pain Scale 7-10) Hydromorphone HCl (Hydromorphone Hcl 0.5 Mg/0.5 Ml Syringe) 0.25 mg IVPUSH Q4H PRN; Protocol PRN Reason: Pain, Moderate(Pain Scale 4-6) Hydroxyzine HCl (Hydroxyzine Hcl 25 Mg Tablet) 25 mg PO BEDTIME PRN PRN Reason: Anxiety Promethazine HCl 6.25 mg/ (Sodium Chloride) 50.25 mls @ 201 mls/hr IV ONCE PRN PRN Reason: Nausea and Vomiting Lactated Ringer's (Lr) 1,000 mls @ 100 mls/hr IVCONT .Q10H [facility] Last Admin: 12/05/22 12:18 Dose: 100 mls/hr Documented By: ZHANNA Acetaminophen (Ofirmev) 1,000 mg in 100 mls @ 16.7 mls/hr IV .Q6H [facility] Metoclopramide HCl (Metoclopramide Hcl 10 Mg/2 Ml Vial) 10 mg IVPUSH Q6H PRN PRN Reason: Nausea Ondansetron HCl (Ondansetron Hcl 4 Mg/2 Ml Vial) 4 mg IVPUSH ONCE PRN PRN Reason: Nausea and Vomiting Ondansetron HCl (Ondansetron Hcl 4 Mg/2 Ml Vial) 4 mg IVPUSH Q8H [facility] Last Admin: 12/05/22 12:22 Dose: 4 mg Documented By: ZHANNA Sertraline HCl (Sertraline Hcl 25 Mg Tablet) 75 mg PO BEDTIME [facility] Sodium Chloride (0.9 % Sodium Chloride Flush 3 Ml Syringe) 3 ml IVFLUSH QSHIFT [facility] Labs 12/05/22 10:32 12/05/22 10:32 Labs: Laboratory Results - last 24 hr 11/29/22 12/05/22 12/05/22 Unknown 06:12 10:32 Anion Gap 14 Estim Creat Clear Calc 121.0 Estimated GFR > 60 Random Glucose 180 H Calcium 8.8 Urine Test NEGATIVE Zinc 80 Procedures Date of Service Date of Service: 12/05/22 Progress Note: A&P Assessment and plan (1) S/P laparoscopic sleeve gastrectomy: Status: Acute (2) Morbid obesity: Status: Acute (3) Obstructive sleep apnea: Status: Acute (4) Hyperlipidemia: Status: Acute (5) Depression with anxiety: Status: Acute (6) Asthma: Status: Acute (7) Insomnia: Status: Acute Plan See orders Encourage sips/hydration and out of bed/ambulation as well as incentive spirometry. Trend morning labs. Time Spent With Patient Time: Total time managing care of this patient today ____ minutes. Quality Stroke Does the patient have a stroke diagnosis?: No VTE Prior VTE?: No VTE Risk Level:: Surgical - moderate VTE Device Contraindication: N/A - Device Ordered VTE Drug Contraindication: Treatment Not Indicated
--- NOTE | 2022-12-05 13:48 | PC.NURSE ---
pt ambulated in hallway tolerated well out of bed to chair
[2022-12-05] MEDS: Acetaminophen 1,000 MG/100 ML PIGGYBACK 16.7 MG IV ×2 (14:21→21:22)
--- NOTE | 2022-12-05 20:14 | PC.RT ---
is not on CPAP at home-was told by she did not need, does not want to start it here
[2022-12-05] MEDS: Famotidine/PF 20 MG/2 ML VIAL IVPUSH (21:22)
[2022-12-05] MEDS: Sertraline HCL 25 MG TABLET 75 MG PO (21:22)
[2022-12-06 04:00] VITALS: BP 120/63; PULSE 62; RESP 18; TEMP 36.2; O2SAT 97
[2022-12-06 07:19] VITALS: BP 122/60; PULSE 63; RESP 18; TEMP 36.8; O2SAT 96
--- NOTE | 2022-12-06 07:32 | P.PNGS_ITS ---
Subjective Subjective Date of Service: 12/06/22 Patient reports: no new complaints, feels better, pain is less and tolerating liquids well Interval history: The patient is doing well since I saw her yesterday and meeting hydration criteria. She has been up and walking and reports minimal pain. She denies any chest pain, difficulty breathing, shortness of breath Unfortunately, her morning labs were not drawn. Physical Exam Vital Signs: Vital Signs: Last Vital Signs Temp 98.3 F 12/06/22 07:19 Pulse 63 12/06/22 07:19 Resp 18 12/06/22 07:19 BP 122/60 12/06/22 07:19 Pulse Ox 96 12/06/22 07:19 O2 Del Method Room Air 12/06/22 07:19 O2 Flow Rate 2 12/05/22 11:20 BMI result Body Mass Index 48.3 On exam she is in good spirits Sclera anicteric Her epigastric trocar dressing is saturated with serosanguineous fluid likely representing the Zynrelief. Will ask the PA or nursing staff to change before discharge Objective Data Active Medications Albuterol Sulfate (Albuterol Sulfate 90 Mcg 8 Gm Inhaler) 2 puff INHALE Q6H PRN PRN Reason: Shortness Of Breath Famotidine (Famotidine/Pf 20 Mg/2 Ml Vial) 20 mg IVPUSH BID [facility] Last Admin: 12/05/22 21:22 Dose: 20 mg Documented By: BISHOP Fentanyl (Fentanyl Citrate/Pf 100 Mcg/2 Ml Vial) 25 mcg IVPUSH Q5M PRN; Protocol PRN Reason: Pain, Moderate(Pain Scale 4-6) Fluticasone/Vilanterol (Fluticasone/Vilanterol 100/25 Blst.W.Dev) 1 puff INHALE RDAILY [facility] Hydromorphone HCl (Hydromorphone Hcl 0.5 Mg/0.5 Ml Syringe) 0.25 mg IVPUSH Q5M PRN; Protocol PRN Reason: Pain, Severe (Pain Scale 7-10) Hydromorphone HCl (Hydromorphone Hcl 0.5 Mg/0.5 Ml Syringe) 0.25 mg IVPUSH Q4H PRN; Protocol PRN Reason: Pain, Moderate(Pain Scale 4-6) Hydroxyzine HCl (Hydroxyzine Hcl 25 Mg Tablet) 25 mg PO BEDTIME PRN PRN Reason: Anxiety Promethazine HCl 6.25 mg/ (Sodium Chloride) 50.25 mls @ 201 mls/hr IV ONCE PRN PRN Reason: Nausea and Vomiting Lactated Ringer's (Lr) 1,000 mls @ 100 mls/hr IVCONT .Q10H [facility] Last Admin: 12/05/22 21:24 Dose: 100 mls/hr Documented By: BISHOP Acetaminophen (Ofirmev) 1,000 mg in 100 mls @ 16.7 mls/hr IV .Q6H [facility] Last Infusion: 12/06/22 04:47 Dose: 0 mls/hr Documented By: BISHOP Metoclopramide HCl (Metoclopramide Hcl 10 Mg/2 Ml Vial) 10 mg IVPUSH Q6H PRN PRN Reason: Nausea Ondansetron HCl (Ondansetron Hcl 4 Mg/2 Ml Vial) 4 mg IVPUSH ONCE PRN PRN Reason: Nausea and Vomiting Ondansetron HCl (Ondansetron Hcl 4 Mg/2 Ml Vial) 4 mg IVPUSH Q8H [facility] Last Admin: 12/06/22 04:41 Dose: Not Given Documented By: BISHOP Non-Admin Reason: Patient Refused Sertraline HCl (Sertraline Hcl 25 Mg Tablet) 75 mg PO BEDTIME [facility] Last Admin: 12/05/22 21:22 Dose: 75 mg Documented By: BISHOP Sodium Chloride (0.9 % Sodium Chloride Flush 3 Ml Syringe) 3 ml IVFLUSH QSHIFT [facility] Last Admin: 12/06/22 00:33 Dose: Not Given Documented By: BISHOP Non-Admin Reason: IV Running Labs 12/05/22 10:32 12/05/22 10:32 Labs: Laboratory Results - last 24 hr 12/05/22 10:32 Anion Gap 14 Estim Creat Clear Calc 121.0 Estimated GFR > 60 Random Glucose 180 H Calcium 8.8 labs from this morning, 05:00 on 12/06/2022 are not available at the time of this note and were not completed Procedures Date of Service Date of Service: 12/06/22 Progress Note: A&P Assessment and plan (1) S/P laparoscopic sleeve gastrectomy: Status: Acute (2) Morbid obesity: Status: Acute (3) Obstructive sleep apnea: Status: Acute (4) Hyperlipidemia: Status: Acute (5) Depression with anxiety: Status: Acute (6) Asthma: Status: Acute (7) Insomnia: Status: Acute Plan Continue to encourage oral hydration and ambulation Please change epigastric port site due to drainage (okay for RN or PA) Await labs. Expect discharge given her clinical status but we need to confirm her electrolytes and hemoglobin are stable. Time Spent With Patient Time: Total time managing care of this patient today ____ minutes. Quality Stroke Does the patient have a stroke diagnosis?: No VTE Prior VTE?: No VTE Risk Level:: Surgical - moderate VTE Device Contraindication: N/A - Device Ordered VTE Drug Contraindication: Treatment Not Indicated
[2022-12-06 07:42] LABS: MANUAL DIFF FLAG NO
[2022-12-06 07:45] LABS: Basophils Percent Auto 0.1 % (0-2); Hematocrit 34.2 % (37.0-47.0); Hemoglobin 11.4 g/dl (12.0-16.0); Imm Gran Abs Auto 0.02 X10*3/uL (0.00-0.03); Imm Gran Pct Auto 0.2 % (0.0-0.4); Lymphocytes Absolute Auto 1.4 X10*3/uL (1.2-4.9); Lymphocytes Percent Auto 15.1 % (20-40); Mean Corpuscular HGB Conc 33.3 g/dl (31.0-35.0); Mean Corpuscular Hemoglobin 29.8 pg (27.0-33.0); Mean Corpuscular Volume 89.3 fL (80.0-98.0); Mean Platelet Volume 12.3 fL (9.4-12.3); Monocytes Absolute Auto 0.8 X10*3/uL (0.1-1.2); Monocytes Percent Auto 8.4 % (2-11); Neutrophils Percent Auto 76.2 % (45-73); Platelet Count 203 X10*3/uL (160-400); Red Blood Count 3.83 X10*6/uL (4.20-5.50); Red Cell Distribution Width 13.2 % (11.0-16.0); White Blood Count 9.2 X10*3/uL (4.8-10.8)
[2022-12-06 08:02] LABS: Anion Gap 14 (12-20); Blood Urea Nitrogen 10 mg/dL (9-16); Calcium 9.1 mg/dL (8.4-10.2); Carbon Dioxide 21 mmol/L (22-29); Chloride 108 mmol/L (96-108); Creatinine Clr Calc Pharmacy 132.3; Estimated Glomerular Filt Rate > 60; Glucose Random 100 mg/dL (60-115); Potassium 4.3 mmol/L (3.3-5.1); Sodium 139 mmol/L (135-145)
[2022-12-06] MEDS: Famotidine/PF 20 MG/2 ML VIAL IVPUSH (08:30)
[2022-12-06] MEDS: Acetaminophen 1,000 MG/100 ML PIGGYBACK 16.7 MG IV (08:30)
[2022-12-06 10:16] VITALS: O2SAT 96
--- NOTE | 2022-12-06 10:40 | MHC.CM.PN ---
PATIENT IS FULLY INDEPENDENT NO DME OR [facility]NA SERVICES HCP WAS COMPLETED PRIOR TO HER STAY BUT IT IS NOT WITH HER. COPY REQUESTED IF SHE IS TO RETURN TO [facility] IN THE FUTURE. DAD IS IN ROOM TO TRANSPORT. NO SERVICES NEEDED.
[2022-12-06 16:48] LABS: Vitamin A 30 mcg/dL (38-98)
[2022-12-07 13:02] LABS: Vitamin B1 6 nmol/L (8-30)
== END 2022-12-06 10:42 | disposition home or self-care (01) | DRG 403 ==
LOC: HO.SSSA 10:17 → HO.S3 11:29
PROVIDERS: Nurse Practitioner; Physician Assistant Surgical; Admitting Provider Surgery; PCP Internal Medicine; Visit Provider Surgery
PROC: 0DB64Z3 Excision of Stomach, Percutaneous Endoscopic Approach, Vertical (ICD-10-PCS; CPT 43845; principal; 2022-12-05 07:30)
DX: E66.01 Morbid (severe) obesity due to excess calories (principal); E78.5 Hyperlipidemia, unspecified; F41.8 Other specified anxiety disorders; G47.33 Obstructive sleep apnea (adult) (pediatric); G47.00 Insomnia, unspecified; J45.909 Unspecified asthma, uncomplicated; Z20.822 Contact with and (suspected) exposure to COVID-19; Z79.51 Long term (current) use of inhaled steroids; Z79.899 Other long term (current) drug therapy
CPT/HCPCS: 36415; 80048; 80053; 80061; 81025; 82306; 82607; 82728; 83036; 83540; 83970; 84425; 84443; 84590; 84630; 85014; 85018; 85025; 85610; 85730; 86140; 86850; 86900; 86901; 87635; 88307; 88342; C9088; C9145; J0131; J1100; J1170; J1956; J2250; J2405; J3010

== ENCOUNTER → 2022-12-11 10:44 | Outpatient (BNVA) | payer BC, SELFPAY | PROVIDERS: PCP Internal Medicine; Visit Provider Physician Assistant Surgical ==

== ENCOUNTER → 2022-12-26 10:49 | Outpatient (BNVA) | payer BC, SELFPAY | PROVIDERS: PCP Internal Medicine; Visit Provider Physician Assistant Surgical ==

== ENCOUNTER → 2023-01-18 10:50 | Outpatient (BNVA) | payer BC, SELFPAY | PROVIDERS: PCP Internal Medicine; Visit Provider Physician Assistant Surgical ==

== ENCOUNTER 2023-02-19 09:43 | Outpatient (AMB) | payer BC, SELFPAY ==
--- NOTE | 2023-02-19 09:57 | A.OFFVIS_ITS ---
Intake VS Expanded 02/19/23 10:03 Height 5 ft Weight 186 lb 3.2 oz BMI 36.4 BP 128/75 Blood Pressure Location Rt brachial Blood Pressure Position Sitting Pulse 61 Pulse Source Pulse Oximeter Temp 97.7 F Temperature Source Temporal Artery Scan Pulse Oximetry 98 Oxygen Delivery Method Room Air Body Fat 69.8 Body Fat Percentage 37.6 Free Fat Mass 116.2 Muscle Mass 110.2 Visceral Mass 8.0 Water Mass 83.2 BMR 1,607 Intake Visit Reasons: (OV) PO LSG 12/05/22 Allergies almond Allergy (Mild, Verified 02/19/23 10:02) Hives azithromycin Allergy (Mild, Verified 02/19/23 10:02) Swelling coconut Allergy (Mild, Verified 02/19/23 10:02) Hives Penicillins Allergy (Mild, Verified 02/19/23 10:02) Hives shellfish derived Allergy (Mild, Verified 02/19/23 10:02) Hives fentanyl Adverse Reaction (Unknown, Verified 02/19/23 10:02) adverse reaction to med post laparoscopy as teenager Medication List - Last Reconciled 02/19/23 by ISRRAEL Marrero albuterol sulfate 90 mcg/actuation 2 puffs inhalation Q6H PRN cetirizine (Zyrtec) 10 mg PO DAILY PRN fluticasone propion-salmeterol 100-50 mcg/dose (Advair Diskus) 1 inh inhalation BID fluticasone propionate 50 mcg/actuation (Flonase Allergy Relief) 1 spray intranasal BID hydroxyzine HCl 25 mg PO BEDTIME PRN inulin 2 grams PO DAILY levonorgestrel (Mirena) 1 device intrauterine ONCE melatonin 5 mg PO BEDTIME PRN pantoprazole 40 mg PO QAM 30 days sertraline 75 mg PO BEDTIME sucralfate 10 mL PO BID 30 days HPI HPI Comments History of Present Illness Details This?is a?37?yo female who is s/p LSG 12/05/2022. Presents for 2.5 month post op visit. Weight at last visit on 01/18/2023 was 193.4 pounds with a BMI of 37.8, weight today is 186.2 pounds, representing a 7.2 pound weight loss with a BMI today of 36.4.? No complaints of nausea, emesis, abdominal pain or reflux, or constipation. Present meal plan includes: 8-10am 30g protein shake 11am-1pm shake 2-5pm Pure Protein bar 6pm 1oz protein, 1oz cooked veg Exercise routine includes: gym 6 days per week, cardio (elliptical or stairmaster) plus core weight training [facility] Medical History (Updated 01/18/23 @ 11:33 by ISRRAEL Marrero) Arthritis Asthma Depression with anxiety Heart murmur Hyperlipidemia Insomnia Sleep apnea Surgical History Hx of colonoscopy Hx of laparoscopy [place] teeth extracted Family History Mother Hypertension High cholesterol Cancer Amyotrophic lateral sclerosis (ALS) Father High cholesterol Hypertension Diabetes Liver cirrhosis Brother Diabetes High cholesterol Hypertension Social History Household Members: Family Housing: House Are you a primary inspector health care facilities to a significant other at home: Yes (to mother who has ALS) Do you presently have visiting nurse or other home services: No Alcohol intake: current Alcohol intake frequency: does not drink Patient Tobacco Use Status: Never used Tobacco Physical Exam Vital Signs: Last Vital Signs Temp 97.7 F 02/19/23 10:03 Pulse 61 02/19/23 10:03 BP 128/75 02/19/23 10:03 Pulse Ox 98 02/19/23 10:03 Oxygen Delivery Method Room Air 02/19/23 10:03 BMI result Body Mass Index 36.4 Assessment & Plan Assessment & Plan (1) Obesity: Code(s): E66.9 - Obesity, unspecified (2) S/P laparoscopic sleeve gastrectomy: Code(s): Z98.84 - Bariatric surgery status Plan Pt would like the option to eliminate one protein shake, discussed the following plan: 8-10:30am Premier protein 30g shake 12pm small meal of 1-2oz protein, 1oz cooked veg 2-5pm Pure Protein bar 6-7pm another small meal Can try raw veg once she is 3 months postop 03/07. RTC 1 month. Meal plan texted to pt and encouraged her to reach out between appts with any questions. Patient is obese and is not considered stable at this time. I spent a total of 30 minutes reviewing/updating records, examining the patient and counseling the patient on weight management as detailed above. Coding Level of Care Code Est Pt Level 4 (10621) Diagnoses Obesity E66.9 S/P laparoscopic sleeve gastrectomy Z98.84
[2023-02-19 10:03] VITALS: BP 128/75; PULSE 61; TEMP 36.5; O2SAT 98; BMI 36.4
== END 2023-02-19 10:34 | disposition home or self-care (01) ==
PROVIDERS: PCP Internal Medicine; Visit Provider Physician Assistant Surgical
DX: E66.9 Obesity, unspecified (principal); Z68.36 Body mass index [BMI] 36.0-36.9, adult; Z90.3 Acquired absence of stomach [part of]; Z98.84 Bariatric surgery status
CPT/HCPCS: 99214

== ENCOUNTER → 2023-02-19 09:43 | Outpatient (BNVA) | payer BC, SELFPAY | PROVIDERS: PCP Internal Medicine; Visit Provider Physician Assistant Surgical ==

== ENCOUNTER 2023-03-26 10:38 | Outpatient (AMB) | payer BC, SELFPAY ==
--- NOTE | 2023-03-26 10:41 | A.OFFVIS_ITS ---
Intake VS Expanded 03/26/23 10:50 Weight 177 lb BP 108/57 L Blood Pressure Location Lt brachial Blood Pressure Position Sitting Pulse 61 Pulse Source Pulse Oximeter Temp 96.1 F L Temperature Source Tympanic Pulse Oximetry 96 Oxygen Delivery Method Room Air Body Fat 67.0 Body Fat Percentage 37.9 Free Fat Mass 109.8 Muscle Mass 104.2 Visceral Mass 8.0 Water Mass 78.8 BMR 1,522 Intake Visit Reasons: (OV) PO LSG 12/05/22 Allergies almond Allergy (Mild, Verified 03/26/23 10:44) Hives azithromycin Allergy (Mild, Verified 03/26/23 10:44) Swelling coconut Allergy (Mild, Verified 03/26/23 10:44) Hives Penicillins Allergy (Mild, Verified 03/26/23 10:44) Hives shellfish derived Allergy (Mild, Verified 03/26/23 10:44) Hives fentanyl Adverse Reaction (Unknown, Verified 03/26/23 10:44) adverse reaction to med post laparoscopy as teenager Medication List - Last Reconciled 03/26/23 by ISRRAEL Marrero albuterol sulfate 90 mcg/actuation 2 puffs inhalation Q6H PRN cetirizine (Zyrtec) 10 mg PO DAILY PRN fluticasone propion-salmeterol 100-50 mcg/dose (Advair Diskus) 1 inh inhalation BID fluticasone propionate 50 mcg/actuation (Flonase Allergy Relief) 1 spray intranasal BID hydroxyzine HCl 25 mg PO BEDTIME PRN levonorgestrel (Mirena) 1 device intrauterine ONCE sertraline 75 mg PO BEDTIME HPI HPI Comments History of Present Illness Details This?is a?38?yo female who is s/p LSG 12/05/2022. Presents for 3.5 month post op visit. Weight at last visit on 02/19/2023 was 186.2 pounds with a BMI of 36.4, weight today is 177 pounds, representing a 9.2 pound weight loss with a BMI today of 34.5.? No complaints of nausea, emesis, abdominal pain or reflux, or constipation. Present meal plan includes: 8-10:30am Premier protein 30g shake 12pm small meal of 1-2oz protein, 1oz co oked veg 2-5pm Pure Protein bar 6-7pm another small meal taking [employer] soft chews occasionally a little hungry after meal at lunchtime Exercise routine includes: gym 6 days per week, cardio (elliptical or stairmaster) plus core weight training- has increased her strength training [facility] Medical History (Updated 01/18/23 @ 11:33 by ISRRAEL Marrero) Arthritis Heart murmur Hyperlipidemia Sleep apnea Insomnia Depression with anxiety Asthma Surgical History [place] teeth extracted Hx of colonoscopy Hx of laparoscopy Family History Mother Hypertension High cholesterol Cancer Amyotrophic lateral sclerosis (ALS) Father High cholesterol Hypertension Diabetes Liver cirrhosis Brother Diabetes High cholesterol Hypertension Social History Household Members: Family Housing: House Are you a primary spiritual care coordinator to a significant other at home: Yes (to mother who has ALS) Do you presently have visiting nurse or other home services: No Alcohol intake: current Alcohol intake frequency: does not drink Patient Tobacco Use Status: Never used Tobacco Physical Exam Vital Signs: Last Vital Signs Temp 96.1 F L 03/26/23 10:50 Pulse 61 03/26/23 10:50 BP 108/57 L 03/26/23 10:50 Pulse Ox 96 03/26/23 10:50 Oxygen Delivery Method Room Air 03/26/23 10:50 Assessment & Plan Assessment & Plan (1) Obesity: Code(s): E66.9 - Obesity, unspecified (2) S/P laparoscopic sleeve gastrectomy: Code(s): Z98.84 - Bariatric surgery status Plan Pt is happy with current meal plan. Can increase veg portion at meals to 2oz if she would like. Will continue exercise regimen and vitamin supplementation. RTC 6 weeks. Pt will reach out via text with any concerns or questions between appts. Patient is obese and is not considered stable at this time. I spent a total of 30 minutes reviewing/updating records, examining the patient and counseling the patient on weight management as detailed above. Coding Level of Care Code Est Pt Level 4 (91074) Diagnoses Obesity E66.9 S/P laparoscopic sleeve gastrectomy Z98.84
[2023-03-26 10:50] VITALS: BP 108/57; PULSE 61; TEMP 35.6; O2SAT 96
== END 2023-03-26 11:27 | disposition home or self-care (01) ==
PROVIDERS: PCP Internal Medicine; Visit Provider Physician Assistant Surgical
DX: E66.9 Obesity, unspecified (principal); Z68.34 Body mass index [BMI] 34.0-34.9, adult; Z98.84 Bariatric surgery status; Z90.3 Acquired absence of stomach [part of]
CPT/HCPCS: 99214

== ENCOUNTER → 2023-03-26 10:38 | Outpatient (BNVA) | payer BC, SELFPAY | PROVIDERS: PCP Internal Medicine; Visit Provider Physician Assistant Surgical ==

== ENCOUNTER 2023-05-07 10:41 | Outpatient (AMB) | payer BC, SELFPAY ==
--- NOTE | 2023-05-07 10:56 | A.OFFVIS_ITS ---
Intake VS Expanded 05/07/23 11:03 BP 112/56 L Blood Pressure Location Rt brachial Blood Pressure Position Sitting Pulse 87 Pulse Source Pulse Oximeter Temp 97.3 F Temperature Source Tympanic Pulse Oximetry 96 Oxygen Delivery Method Room Air Height 5 ft Weight 170 lb BMI 33.2 Body Fat % 36.2 Body Fat Mass 61.6 Fat Free Mass 108.4 Visceral Fat Rating 7.0 Body Water % 45.7 Body Water Mass 77.6 Muscle Mass/Score 103.0 Basal Metabolic Rate/Score 1,497 Intake Visit Reasons: (OV) PO LSG 12/05/22 Allergies almond Allergy (Mild, Verified 05/07/23 10:57) Hives azithromycin Allergy (Mild, Verified 05/07/23 10:57) Swelling coconut Allergy (Mild, Verified 05/07/23 10:57) Hives Penicillins Allergy (Mild, Verified 05/07/23 10:57) Hives shellfish derived Allergy (Mild, Verified 05/07/23 10:57) Hives fentanyl Adverse Reaction (Unknown, Verified 05/07/23 10:57) adverse reaction to med post laparoscopy as teenager Medication List - Last Reconciled 05/07/23 by ISRRAEL Marrero albuterol sulfate 90 mcg/actuation 2 puffs inhalation Q6H PRN cetirizine (Zyrtec) 10 mg PO DAILY PRN fluticasone propion-salmeterol 100-50 mcg/dose (Advair Diskus) 1 inh inhalation BID fluticasone propionate 50 mcg/actuation (Flonase Allergy Relief) 1 spray intranasal BID hydroxyzine HCl 25 mg PO BEDTIME PRN levonorgestrel (Mirena) 1 device intrauterine ONCE sertraline 75 mg PO BEDTIME HPI HPI Comments History of Present Illness Details This?is a?38?yo female who is s/p LSG 12/05/2022. Presents for 5 month post op visit. Weight at last visit on 03/26/2023 was 177 pounds, weight today is 170 pounds, representing a 7 pound weight loss with a BMI today of 33.2.? No complaints of nausea, emesis, abdominal pain or reflux, or constipation. [place] she stalled with weight loss for a short time but changed meal plan slightly, was able to lose again. Present meal plan includes: 8-10:30am Premier protein 30g shake 12pm small meal of 1-2oz protein, 2oz co oked veg 2-5pm Pure Protein bar 6-7pm another small meal taking [employer] soft chews sometimes will have two shakes and one meal instead, if not very hungry Exercise routine includes: gym 5-6 days per week, cardio (elliptical or stairmaster) plus core weight training- has increased her strength training, also started swimming PFSH Medical History (Updated 01/18/23 @ 11:33 by ISRRAEL Marrero) Arthritis Heart murmur Hyperlipidemia Sleep apnea Insomnia Depression with anxiety Asthma Surgical History (Updated 05/07/23 @ 11:12 by Sravanthi Prealta [employer]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) Hx of laparoscopic partial gastrectomy [place] teeth extracted Hx of colonoscopy Hx of laparoscopy Family History Mother Hypertension High cholesterol Cancer Amyotrophic lateral sclerosis (ALS) Father High cholesterol Hypertension Diabetes Liver cirrhosis Brother Diabetes High cholesterol Hypertension Social History Household Members: Family Housing: House Are you a primary manager medicare marketing to a significant other at home: Yes (to mother who has ALS) Do you presently have visiting nurse or other home services: No Alcohol intake: current Alcohol intake frequency: does not drink Patient Tobacco Use Status: Never used Tobacco Assessment & Plan Assessment & Plan (1) Obesity: Code(s): E66.9 - Obesity, unspecified (2) S/P laparoscopic sleeve gastrectomy: Code(s): Z98.84 - Bariatric surgery status Plan Discussed that pt may be getting more protein than she needs now that she has lost additional weight. If she has two shakes a day then have just one meal or bar, not both. Can text me between appts for additional adjustments if she finds that she stalls again. Will order labs in anticipation of 6 month visit. RTC 6 weeks. Patient is obese and is not considered stable at this time. I spent a total of 30 minutes reviewing/updating records, examining the patient and counseling the patient on weight management as detailed above. Orders: Orders Complete Blood Count Auto Diff Today Z98.84 - Bariatric surgery status Vitamin B12 and Folate Today Z98.84 - Bariatric surgery status Zinc Today Z98.84 - Bariatric surgery status Comprehensive Met. Panel Today Z98.84 - Bariatric surgery status PTHI Today Z98.84 - Bariatric surgery status Vitamin D 25-OH Total Today Z98.84 - Bariatric surgery status Insulin Today Z98.84 - Bariatric surgery status Lipid Panel Today Z98.84 - Bariatric surgery status IRON PROFILE Today Z98.84 - Bariatric surgery status Vitamin B1 Today Z98.84 - Bariatric surgery status Vitamin A Today Z98.84 - Bariatric surgery status C Reactive Protein Today Z98.84 - Bariatric surgery status Ferritin Today Z98.84 - Bariatric surgery status TSH reflex Free T4 Today Z98.84 - Bariatric surgery status Hemoglobin A1c Today Z98.84 - Bariatric surgery status Coding Level of Care Code Est Pt Level 4 (35873) Diagnoses Obesity E66.9 S/P laparoscopic sleeve gastrectomy Z98.84
[2023-05-07 11:03] VITALS: BP 112/56; PULSE 87; TEMP 36.3; O2SAT 96; BMI 33.2
== END 2023-05-07 11:32 | disposition home or self-care (01) ==
PROVIDERS: PCP Internal Medicine; Visit Provider Physician Assistant Surgical
DX: E66.9 Obesity, unspecified (principal); Z68.33 Body mass index [BMI] 33.0-33.9, adult; Z90.3 Acquired absence of stomach [part of]; Z98.84 Bariatric surgery status
CPT/HCPCS: 99214

== ENCOUNTER → 2023-05-07 10:41 | Outpatient (BNVA) | payer BC, SELFPAY | PROVIDERS: PCP Internal Medicine; Visit Provider Physician Assistant Surgical ==

== ENCOUNTER 2023-08-06 11:20 | Outpatient (AMB) | payer OTHER, SELFPAY ==
--- NOTE | 2023-08-06 11:07 | A.OFFVIS_ITS ---
Intake VS Expanded 08/06/23 11:10 Height 5 ft Weight 181 lb 2 oz BMI 35.4 Intake Visit Reasons: TV PO LSG 12/05/22 Allergies almond Allergy (Mild, Verified 05/07/23 10:57) Hives azithromycin Allergy (Mild, Verified 05/07/23 10:57) Swelling coconut Allergy (Mild, Verified 05/07/23 10:57) Hives Penicillins Allergy (Mild, Verified 05/07/23 10:57) Hives shellfish derived Allergy (Mild, Verified 05/07/23 10:57) Hives fentanyl Adverse Reaction (Unknown, Verified 05/07/23 10:57) adverse reaction to med post laparoscopy as teenager Medication List - Last Reconciled 08/06/23 by ISRRAEL Marrero albuterol sulfate 90 mcg/actuation 2 puffs inhalation Q6H PRN cetirizine (Zyrtec) 10 mg PO DAILY PRN fluticasone propion-salmeterol 100-50 mcg/dose (Advair Diskus) 1 inh inhalation BID fluticasone propionate 50 mcg/actuation (Flonase Allergy Relief) 1 spray intranasal BID hydroxyzine HCl 25 mg PO BEDTIME PRN levonorgestrel (Mirena) 1 device intrauterine ONCE sertraline 75 mg PO BEDTIME HPI HPI Comments History of Present Illness Details This?is a?38?yo female who is s/p LSG 12/05/2022. Presents for 8 month post op visit. Weight at last visit on 05/07/2023 was 170 pounds with a BMI of 33.2, weight today is 181.2 pounds, representing a 11.2 pound weight loss with a BMI today of 35.4.?No complaints of nausea, emesis, abdominal pain or reflux, or constipation. Pt reports her mother from ALS in May, a few weeks of ICU stays prior. Also had COVID again, breathing is better now. Present meal plan includes: 8-10:30am Premier protein 30g shake 12pm small meal of 1-2oz protein, 2oz co oked veg 2-5pm Pure Protein bar 6-7pm another small meal taking [employer] soft chews sometimes will have two shakes and one meal instead, if not very hungry lately doing 2 shakes, and one meal per day, as she was off plan for a while at end of 2022 restarting exercise routine this month- restarted weights, planning to add cardio back in Exercise routine includes: gym 5-6 days per week, cardio (elliptical or stairmaster) plus core weight training- has increased her strength training, also started swimming [facility] Medical History (Updated 01/18/23 @ 11:33 by ISRRAEL Marrero) Arthritis Heart murmur Hyperlipidemia Sleep apnea Insomnia Depression with anxiety Asthma Surgical History (Updated 05/07/23 @ 11:12 by Sravanthi Peralta CMA) Hx of laparoscopic partial gastrectomy [place] teeth extracted Hx of colonoscopy Hx of laparoscopy Family History Mother Hypertension High cholesterol Cancer Amyotrophic lateral sclerosis (ALS) Father High cholesterol Hypertension Diabetes Liver cirrhosis Brother Diabetes High cholesterol Hypertension Social History Household Members: Family Housing: House Are you a primary respiratory care technician to a significant other at home: Yes (to mother who has ALS) Do you presently have visiting nurse or other home services: No Alcohol intake: current Alcohol intake frequency: does not drink Patient Tobacco Use Status: Never used Tobacco Assessment & Plan Assessment & Plan (1) Obesity: Code(s): E66.9 - Obesity, unspecified (2) S/P laparoscopic sleeve gastrectomy: Code(s): Z98.84 - Bariatric surgery status Plan Pt plans to return to previous plan with 2 shakes, 1 small meal, and a snack if needed. She has also restarted exercise and plans to increase. She will text me between now and next visit if she feels she needs any adjustments between appts. Reminded pt to have labs drawn. RTC 2 months. Patient is obese and is not considered stable at this time. I spent a total of 30 minutes reviewing/updating records, examining the patient and counseling the patient on weight management as detailed above. Telehealth Telehealth Location of provider rendering services: practice address Location of patient: address on file Patient Identification confirmed using: Name, : Yes Telehealth method: voice only Patient verbally consented to treatment: Yes Patient verbally consented to billing insurance company: Yes Patient informed of any privacy concerns related to visit: Yes Minutes spent on Phone/Video with Pt.: 15 Coding Level of Care Code Tele Est Pt Level 4 (60539) Diagnoses Obesity E66.9 S/P laparoscopic sleeve gastrectomy Z98.84
[2023-08-06 11:10] VITALS: BMI 35.4
== END 2023-08-06 11:25 | disposition home or self-care (01) ==
LOC: HO.HBS 11:20
PROVIDERS: PCP Internal Medicine; Visit Provider Physician Assistant Surgical
DX: E66.9 Obesity, unspecified (principal); Z68.35 Body mass index [BMI] 35.0-35.9, adult; Z90.3 Acquired absence of stomach [part of]; Z98.84 Bariatric surgery status
CPT/HCPCS: 99442

== ENCOUNTER → 2023-08-06 11:20 | Outpatient (BNVA) | payer OTHER, SELFPAY | PROVIDERS: PCP Internal Medicine; Visit Provider Physician Assistant Surgical ==

== ENCOUNTER 2023-08-19 06:41 | Outpatient (REF) | payer OTHER, SELFPAY ==
[2023-08-19 06:59] LABS: MANUAL DIFF FLAG NO
[2023-08-19 07:46] LABS: Basophils Absolute Auto 0.1 X10*3/uL (0.0-0.2); Basophils Percent Auto 0.9 % (0-2); Eosinophils Absolute Auto 0.3 X10*3/uL (0.0-0.4); Eosinophils Percent Auto 4.6 % (0-4); Hematocrit 36.4 % (37.0-47.0); Hemoglobin 12.2 g/dl (12.0-16.0); Imm Gran Abs Auto 0.03 X10*3/uL (0.00-0.03); Imm Gran Pct Auto 0.5 % (0.0-0.4); Lymphocytes Absolute Auto 2.3 X10*3/uL (1.2-4.9); Lymphocytes Percent Auto 38.8 % (20-40); Mean Corpuscular HGB Conc 33.5 g/dl (31.0-35.0); Mean Corpuscular Volume 92.4 fL (80.0-98.0); Mean Platelet Volume 11.9 fL (9.4-12.3); Monocytes Absolute Auto 0.5 X10*3/uL (0.1-1.2); Neutrophils Absolute Auto 2.8 x10*3/uL (2.0-8.3); Neutrophils Percent Auto 47.2 % (45-73); Platelet Count 211 X10*3/uL (160-400); Red Blood Count 3.94 X10*6/uL (4.20-5.50); Red Cell Distribution Width 12.9 % (11.0-16.0); White Blood Count 5.9 X10*3/uL (4.8-10.8)
[2023-08-19 07:51] LABS: Estimated Average Glucose 100 mg/dL; Hemoglobin A1c % 5.1 % (<6.0)
[2023-08-19 08:29] LABS: Alanine Aminotransferase 19 U/L (0-31); Albumin Level 3.8 g/dL (3.5-5.0); Alkaline Phosphatase 48 U/L (39-117); Anion Gap 11 (12-20); Aspartate Amino Transferase 18 U/L (5-31); Bilirubin Total 0.6 mg/dL (0.0-1.0); Blood Urea Nitrogen 11 mg/dL (9-16); C Reactive Protein 0.28 mg/dL (< or = 0.50); Calcium 8.9 mg/dL (8.4-10.2); Carbon Dioxide 27 mmol/L (22-29); Chloride 107 mmol/L (96-108); Cholesterol 186 mg/dL (<200); Estimated Glomerular Filt Rate > 60; Glucose Random 89 mg/dL (60-115); HDL Cholesterol 70 mg/dL (>40); Iron 116 mcg/dL (30-160); LDL Cholesterol Calculated 106 mg/dL (<100); Percent Iron Saturation 51 % (15-50); Potassium 4.2 mmol/L (3.3-5.1); Sodium 141 mmol/L (135-145); Total Iron Binding Capacity 227 mcg/dL (228-428); Total Protein 6.7 g/dL (6.5-8.0); Triglycerides 52 mg/dL (<150); Unsaturated Iron Binding 111 ug/dL
[2023-08-19 08:41] LABS: Folate 6.1 ng/mL (> or = 4.0); Vitamin B12 712 pg/mL (200-900)
[2023-08-19 08:50] LABS: Ferritin 54 ng/mL (10-122); Insulin 4 uU/mL (2-29); TSH reflex Free T4 2.87 uIU/mL (0.32-4.0); Vitamin D 25-OH Total 33.4 ng/mL (>30)
[2023-08-21 16:49] LABS: Zinc 57 mcg/dL (60-130)
[2023-08-22 03:03] LABS: Vitamin A 30 mcg/dL (38-98)
[2023-08-23 23:49] LABS: Vitamin B1 12 nmol/L (8-30)
== END 2023-08-19 06:42 | disposition home or self-care (01) ==
LOC: HO.LAB 06:41
PROVIDERS: Visit Provider Physician Assistant Surgical
DX: Z98.84 Bariatric surgery status (principal)
CPT/HCPCS: 36415; 80053; 80061; 82306; 82607; 82728; 82746; 83036; 83525; 83540; 84425; 84443; 84590; 84630; 85025; 86140

== ENCOUNTER 2023-10-08 09:16 | Outpatient (AMB) | payer OTHER, SELFPAY ==
--- NOTE | 2023-10-08 09:19 | A.OFFVIS_ITS ---
Intake VS Expanded 10/08/23 09:26 BP 103/53 L Blood Pressure Location Rt brachial Blood Pressure Position Sitting Pulse 61 Pulse Source Pulse Oximeter Temp 97.2 F Temperature Source Tympanic Pulse Oximetry 61 L Oxygen Delivery Method Room Air Height 5 ft Weight 178 lb BMI 34.8 Body Fat % 37.8 Body Fat Mass 67.2 Fat Free Mass 110.6 Visceral Fat Rating 8.0 Body Water % 44.6 Body Water Mass 79.4 Muscle Mass/Score 105.2 Basal Metabolic Rate/Score 1,533 Intake Visit Reasons: PO LSG 12/05/22 Allergies almond Allergy (Mild, Verified 10/08/23 09:23) Hives azithromycin Allergy (Mild, Verified 10/08/23 09:23) Swelling coconut Allergy (Mild, Verified 10/08/23 09:23) Hives Penicillins Allergy (Mild, Verified 10/08/23 09:23) Hives shellfish derived Allergy (Mild, Verified 10/08/23 09:23) Hives fentanyl Adverse Reaction (Unknown, Verified 10/08/23 09:23) adverse reaction to med post laparoscopy as teenager Medication List - Last Reconciled 10/08/23 by ISRRAEL Marrero albuterol sulfate 90 mcg/actuation 2 puffs inhalation Q6H PRN cetirizine (Zyrtec) 10 mg PO DAILY PRN fluticasone propion-salmeterol 100-50 mcg/dose (Advair Diskus) 1 inh inhalation BID fluticasone propionate 50 mcg/actuation (Flonase Allergy Relief) 1 spray intranasal BID hydroxyzine HCl 25 mg PO BEDTIME PRN levonorgestrel (Mirena) 1 device intrauterine ONCE sertraline 75 mg PO BEDTIME vitamin A palmitate 10,000 units PO DAILY zinc gluconate 30 mg PO DAILY HPI HPI Comments History of Present Illness Details This?is a?38?yo female who is s/p LSG 12/05/2022. Presents for 10 month post op visit. Weight at last visit on 08/06/2023 was 181.2 pounds with a BMI of 35.4, weight today is 178 pounds, representing a 3.2 pound weight loss with a BMI today of 34.8.? No complaints of nausea, emesis, abdominal pain or reflux, or constipation. Planning to move to [place] soon. Present meal plan includes: 8am Premier protein 30g shake 12pm shake 2-5pm Pure Protein bar 6-7pm small meal of protein/veg taking [employer] soft chews sometimes will have two shakes and one meal instead, if not very hungry; doesn't always get a snack of protein in afternoon, sometimes gets hungry at night if skips snack Exercise routine includes: gym 5 days per week- 30 min in pool, 30 min free weight/pilates PFSH Medical History (Updated 01/18/23 @ 11:33 by ISRRAEL Marrero) Arthritis Heart murmur Hyperlipidemia Sleep apnea Insomnia Depression with anxiety Asthma Surgical History Hx of laparoscopic partial gastrectomy [place] teeth extracted Hx of colonoscopy Hx of laparoscopy Family History Mother Hypertension High cholesterol Cancer Amyotrophic lateral sclerosis (ALS) Father High cholesterol Hypertension Diabetes Liver cirrhosis Brother Diabetes High cholesterol Hypertension Social History Household Members: Family Housing: House Are you a primary md do resident urgent care to a significant other at home: Yes (to mother who has ALS) Do you presently have visiting nurse or other home services: No Alcohol intake: current Alcohol intake frequency: does not drink Patient Tobacco Use Status: Never used Tobacco Physical Exam Vital Signs: Last Vital Signs Temp 97.2 F 10/08/23 09:26 Pulse 61 10/08/23 09:26 BP 103/53 L 10/08/23 09:26 Pulse Ox 61 L 10/08/23 09:26 Oxygen Delivery Method Room Air 10/08/23 09:26 BMI result Body Mass Index 34.8 Assessment & Plan Assessment & Plan (1) Obesity: Code(s): E66.9 - Obesity, unspecified (2) S/P laparoscopic sleeve gastrectomy: Code(s): Z98.84 - Bariatric surgery status Plan Pt likely getting too much protein for current needs resulting in slower weight loss. New plan: 2 shakes, each should be HALF a premade Premier shake (can mix first in coffee) for 15g each [place] yogurt for a snack Meal of 8 forks/8 forks Pt plans to restart more formal cardio, likes running outside. Labs ordered in anticipation of 1 year visit. RTC 2 months. Patient is obese and is not considered stable at this time. I spent a total of 30 minutes reviewing/updating records, examining the patient and counseling the patient on weight management as detailed above. Orders: Orders Insulin Today Z98.84 - Bariatric surgery status Hemoglobin A1c Today Z98.84 - Bariatric surgery status Complete Blood Count Auto Diff Today Z98.84 - Bariatric surgery status Comprehensive Met. Panel Today Z98.84 - Bariatric surgery status Zinc Today Z98.84 - Bariatric surgery status C Reactive Protein Today Z98.84 - Bariatric surgery status Vitamin B1 Today Z98.84 - Bariatric surgery status Vitamin A Today Z98.84 - Bariatric surgery status Ferritin Today Z98.84 - Bariatric surgery status Lipid Panel Today Z98.84 - Bariatric surgery status IRON PROFILE Today Z98.84 - Bariatric surgery status Vitamin B12 and Folate Today Z98.84 - Bariatric surgery status TSH reflex Free T4 Today Z98.84 - Bariatric surgery status Vitamin D 25-OH Total Today Z98.84 - Bariatric surgery status Coding Level of Care Code Est Pt Level 4 (52848) Diagnoses Obesity E66.9 S/P laparoscopic sleeve gastrectomy Z98.84
[2023-10-08 09:26] VITALS: BP 103/53; PULSE 61; TEMP 36.2; O2SAT 61; BMI 34.8
== END 2023-10-08 10:12 | disposition home or self-care (01) ==
PROVIDERS: PCP Internal Medicine; Visit Provider Physician Assistant Surgical
DX: E66.9 Obesity, unspecified (principal); Z98.84 Bariatric surgery status
CPT/HCPCS: 99214

== ENCOUNTER → 2023-10-08 09:16 | Outpatient (BNVA) | payer OTHER, SELFPAY | PROVIDERS: PCP Internal Medicine; Visit Provider Physician Assistant Surgical ==